=== PATIENT | female | born 1985 | race Caucasian/White ===

== ENCOUNTER → 2017-07-24 | Outpatient (CLI) | payer OTHER ==
[2017-07-24 16:34] LABS: FREE T4 0.85 NG/DL (0.76-1.46)
== END ==
LOC: M SMT 09:12
DX: Z13.29 Encounter for screening for other suspected endocrine disorder (principal)

== ENCOUNTER → 2017-10-25 | Outpatient (CLI) | payer BC | LOC: M SMT 08:43 | DX: Z34.90 Encounter for supervision of normal pregnancy, unspecified, unspecified trimester (principal); Z36.89 Encounter for other specified antenatal screening | CPT/HCPCS: 36415 ==

== ENCOUNTER → 2017-11-30 | Outpatient (CLI) | payer OTHER | LOC: M SMT 07:58 | DX: Z36.9 Encounter for antenatal screening, unspecified (principal); Z3A.19 19 weeks gestation of pregnancy | CPT/HCPCS: 76811 ==

== ENCOUNTER → 2017-12-25 | Outpatient (CLI) | payer OTHER | LOC: M RAD 06:57 | DX: O09.212 Supervision of pregnancy with history of pre-term labor, second trimester (principal); Z3A.22 22 weeks gestation of pregnancy | CPT/HCPCS: 76816 ==

== ENCOUNTER → 2018-01-23 | Outpatient (CLI) | payer OTHER ==
[~2018-01-23] MED LIST: IBUP60TA PO; MAPA500T2 PO; PRENTAB16 PO
[2018-01-23 13:15] LABS: BASO % 0.1 % (0.0-1.0); EOS # 0.1 10^3/uL (0.0-0.50); EOS % 1.7 % (0.0-3.0); HEMATOCRIT 34.9 % (36.0-47.0); HEMOGLOBIN 11.9 g/dl (12.0-15.5); LYMPH # 1.5 10^3/uL (1.5-4.5); LYMPH % 18.3 % (24.0-44.0); MEAN CORPUSCULAR HEMOGLOBIN 30.7 pg (27.0-33.0); MEAN CORPUSCULAR HGB CONC 34.1 g/dl (32.0-36.5); MEAN CORPUSCULAR VOLUME 89.9 fl (80.0-96.0); MONO # 0.3 10^3/uL (0.0-0.8); MONO % 3.9 % (0.0-5.0); NEUTROPHILS # 6.3 10^3/uL (1.8-7.7); NEUTROPHILS % 75.6 % (36.0-66.0); PLATELET COUNT, AUTOMATED 187 10^3/uL (150-450); RED BLOOD COUNT 3.88 10^6/uL (4.00-5.40); WHITE BLOOD COUNT 8.4 10^3/uL (4.0-10.0)
== END ==
LOC: M SMT 09:00
PROVIDERS: ATTEND Specialist
DX: O09.212 Supervision of pregnancy with history of pre-term labor, second trimester (principal)

== ENCOUNTER → 2018-01-25 | Outpatient (CLI) | payer OTHER ==
[~2018-01-25] MED LIST changes: +MAPA500T17 PO; -MAPA500T2 PO
== END ==
LOC: M LAB 06:50
PROVIDERS: ATTEND Specialist
DX: O09.212 Supervision of pregnancy with history of pre-term labor, second trimester (principal)

== ENCOUNTER → 2018-03-28 | Outpatient (REF) | payer OTHER ==
[~2018-03-28] MED LIST changes: -MAPA500T17 PO; +MAPA500T2 PO
== END ==
LOC: M LAB REF 13:06
PROVIDERS: ATTEND Specialist
DX: O09.213 Supervision of pregnancy with history of pre-term labor, third trimester (principal); Z3A.00 Weeks of gestation of pregnancy not specified

== ENCOUNTER 2018-04-17 11:17 | Inpatient (IN) | payer OTHER ==
[2018-04-17] VITALS (11 sets, daily range): BP systolic 126–157; BP diastolic 69–87
[~2018-04-17] VITALS: Ht 154.9 cm; Wt 88.6 kg
[2018-04-17 18:35] LABS: HEMATOCRIT 35.7 % (36.0-47.0); HEMOGLOBIN 12.4 g/dl (12.0-15.5); MEAN CORPUSCULAR HEMOGLOBIN 30.5 pg (27.0-33.0); MEAN CORPUSCULAR HGB CONC 34.7 g/dl (32.0-36.5); MEAN CORPUSCULAR VOLUME 87.9 fl (80.0-96.0); PLATELET COUNT, AUTOMATED 148 10^3/uL (150-450); RED BLOOD COUNT 4.06 10^6/uL (4.00-5.40); WHITE BLOOD COUNT 11.5 10^3/uL (4.0-10.0)
[2018-04-17 18:38] LABS: APPEARANCE, URINE CLEAR (CLEAR); BACTERIA, URINE AUTO NEGATIVE (NEGATIVE); BILIRUBIN, URINE AUTO NEGATIVE (NEGATIVE); BLOOD, URINE BLOOD NEGATIVE (NEGATIVE); CALCIUM OXALATE CRYSTALS SMALL; COLOR, URINE STRAW (YELLOW); GLUCOSE, URINE (UA) AUTO NEGATIVE (NEGATIVE); KETONE, URINE AUTO NEGATIVE (NEGATIVE); LEUKOCYTE ESTERASE, URINE AUTO NEGATIVE (NEGATIVE); NITRITE, URINE AUTO NEGATIVE (NEGATIVE); PROTEIN, URINE AUTO NEGATIVE (NEGATIVE); RBC, URINE AUTO 0 /HPF (0-3); SPECIFIC GRAVITY URINE AUTO 1.004 (1.002-1.035); SQUAMOUS EPITHELIAL CELL UR AU 1 /HPF (0-6); UROBILINOGEN, URINE AUTO 0.2 mg/dL (0.0-2.0); WBC, URINE AUTO 0 /HPF (0-3)
[2018-04-17 19:00] LABS: ALT/SGPT 19 U/L (12-78); BILIRUBIN,TOTAL 0.2 MG/DL (0.2-1.0); CREATININE FOR GFR 0.76 MG/DL (0.55-1.30); GLOMERULAR FILTRATION RATE > 60.0 (>60); LDH LACTATE DEHYDROGENASE 223 U/L (84-246); URIC ACID 5.8 MG/DL (2.6-6.0)
[2018-04-17] MEDS ORDERED: OXYTOCIN 30 UNITS IN 0.9% NaCl 500ML IV BAG (J2590) As Ordered ONE (20:30)
[2018-04-17] MEDS ORDERED: FENTANYL 2MCG/ML ROPIVACAINE 0.2% IN 0.9% NACL 100ML IVBAG As Ordered ONE (21:00)
[2018-04-17] MEDS ORDERED: OXYTOCIN DRIP 30 UNITS in APPROPRIATE DILUENT 1 EA IV SCH (21:36)
[2018-04-17] MEDS ORDERED: ANUSOL HC CREAM 30GM TOP PRN (21:45)
[2018-04-17] MEDS ORDERED: MOM 30ML SUSPENSION UDC PO PRN (21:45)
[2018-04-17] MEDS ORDERED: MEASLES,MUMPS,RUBELLA VACCINE INJ (MMR-II) (90707) SC SCH (21:45)
[2018-04-17] MEDS ORDERED: RHOGAM 300 MCG (1500 IU) INJ (J2790) IM SCH (21:45)
[2018-04-17] MEDS ORDERED: METHYLERGONOVINE MALEATE 0.2 MG TAB PO PRN (21:45)
[2018-04-17] MEDS ORDERED: LIDOCAINE 1% MDV 20ML VIAL INFIL ONE (21:45)
[2018-04-17] MEDS ORDERED: ACETAMINOPHEN 500 MG TAB PO PRN (21:45)
[2018-04-17] MEDS ORDERED: IBUPROFEN 800 MG TAB PO PRN (21:45)
[2018-04-17] MEDS ORDERED: DOCUSATE SODIUM 100 MG CAP PO PRN (21:45)
[2018-04-17] MEDS ORDERED: DIBUCAINE 1% OINTMENT 30GM TOP PRN (21:45)
--- NOTE | 2018-04-17 22:40 | HPE ---
DATE OF ADMISSION: 04/17/2018 REASON FOR ADMISSION: Labor. HISTORY OF THE PRESENT ILLNESS: Mrs. Weeks is a 33-year-old 3, para 1 who presents at 38 weeks 4 days estimated gestational age by last menstrual period, confirmed by first trimester ultrasound, with complaints of contractions. She reports contractions early this morning that have increased in intensity and frequency. She denies any vaginal bleeding or leakage of fluid. Her course has been unremarkable. She initiated care in her first trimester, has been appropriate throughout. She has been receiving [place] injection secondary to a history of premature rupture of membranes. PAST MEDICAL HISTORY: None. PAST SURGICAL HISTORY: None. PAST OBSTETRICAL HISTORY: She is 3, para 1. She has had one delivery at 32 weeks 5 days. She is proven to 4 pounds 13 ounces. SOCIAL HISTORY: Denies any alcohol, tobacco or drug use during her . MEDICATIONS: Includes vitamins. ALLERGIES: She has allergies to PENICILLIN. PHYSICAL EXAMINATION: Vital signs: Her blood pressure is 143/87. This was repeated several times, which was mildly elevated. Respirations 18, pulse has been 70s to 90s. She has been afebrile. She has a category one heart rate tracing with contractions on tocometer approximately ever 3 minutes. General appearance: Well appearing, no acute distress. Lungs: Clear to auscultation bilaterally. Cardiovascular: Heart regular rate and rhythm. Abdomen: Her abdomen is gravid, nontender, estimated weight 3400 grams. Cervical Exam: She is 5 cm dilated, 75% effaced, -2 station. LABS: Her labs - her blood type is B+, antibody screen is negative, rubella is immune. RPR is nonreactive. Hepatitis surface antigen is nonreactive. HIV is negative. Hepatitis C is nonreactive. Chlamydia and gonorrhea screens are negative. She had an elevated 1-hour Glucola with a normal 3-hour glucose tolerance test. She is GBS negative. ASSESSMENT: 1. Mrs. Weeks is a 33-year-old 3, para 1 at 38 weeks 4 days estimated gestational age, here in active labor. 2. Gestational hypertension. 3. Reassuring status. PLAN: 1. Admit to labor and delivery, CBC, RPR, type and screen, pre-eclamptic panel. 2. I have discussed patient diagnosis, as well as plan of care. 3. Patient is a good candidate for an epidural.
--- NOTE | 2018-04-17 22:48 | DN ---
DATE OF DELIVERY: 04/17/2018 TIME OF : 2111 hours. GENDER: Male. SCORES: 8 and 9. WEIGHT: 5 pounds 12 ounces or 2600 grams. LACERATION: First-degree midline laceration. ANESTHESIA: None. COUNTS: Five laparotomy sponges accounted for prior to and after delivery. Two sharps removed from delivery field. DELIVERY NOTE: On 04/17/2018 at 2111 hours, Mrs. Weeks, a 33-year-old, 3, now para 2 had a spontaneous vaginal delivery of live born male , scores 8 and 9, weight was 5 pounds 12 ounces, 2600 grams. Head was delivered, and there was a nuchal cord, which was manually reduced followed by delivery of shoulders and corpus. Infant was handed to mom with a good cry. Cord was clamped times two, was cut by the father of the baby under my direction. Placenta was then drained and delivered grossly intact. A premixed bag of 500 mL of normal saline with 30 units of Pitocin was bolused along with uterine massage, the uterus was firm. On inspection, there was a first-degree midline laceration, which was repaired with #3-0 Vicryl Rapide. On inspection, the cervix, vagina, perineum was grossly intact and hemostatic. Mom and baby recovering in stable condition. Couple has decided to name their son Addison Velazquez.
[2018-04-18 05:46] VITALS: BP 134/69
[2018-04-18] MEDS: PRENATAL VITAMINS CHEWABLE TABLET PO SCH (09:56)
[2018-04-18 18:00] VITALS: BP 124/59
[2018-04-19 06:45] VITALS: BP 134/85
[2018-04-19] MEDS ORDERED: MAPA500T2 PO (07:38)
[2018-04-19] MEDS ORDERED: IBUP-1114 PO (07:38)
[2018-04-19] MEDS: PRENATAL VITAMINS CHEWABLE TABLET PO SCH (08:22)
== END 2018-04-19 12:05 | disposition home or self-care (01) | DRG 807 ==
LOC: M LDO 11:17 → M LDI 17:01 → M OBS 23:13
PROVIDERS: ADMIT Obstetrics & Gynecology; ATTEND Obstetrics & Gynecology
PROC: 10E0XZZ Delivery of Products of Conception, External Approach (ICD-10-PCS; principal; 2018-04-17)
PROC: 0HQ9XZZ Repair Perineum Skin, External Approach (ICD-10-PCS; 2018-04-17)
DX: O13.4 Gestational [pregnancy-induced] hypertension without significant proteinuria, complicating childbirth (principal); Z37.0 Single live birth; Z3A.38 38 weeks gestation of pregnancy; O70.0 First degree perineal laceration during delivery; O69.81X0 Labor and delivery complicated by cord around neck, without compression, not applicable or unspecified

== ENCOUNTER 2018-04-22 20:21 | Inpatient (IN) | payer OTHER ==
[~2018-04-22] VITALS: Ht 154.9 cm; Wt 84.1 kg
[~2018-04-22 20:21] MED LIST changes: +IBUP-1114 PO
[2018-04-22] MEDS ORDERED: KETOROLAC 30 MG/ML VIAL (J1885) IV ONE (21:00)
[2018-04-22 21:50] LABS: BASO % 0.4 % (0.0-1.0); EOS # 0.2 10^3/uL (0.0-0.50); EOS % 1.7 % (0.0-3.0); HEMATOCRIT 34.7 % (36.0-47.0); HEMOGLOBIN 11.9 g/dl (12.0-15.5); LYMPH # 2.5 10^3/uL (1.5-4.5); LYMPH % 26.8 % (24.0-44.0); MEAN CORPUSCULAR HGB CONC 34.3 g/dl (32.0-36.5); MEAN CORPUSCULAR VOLUME 90.4 fl (80.0-96.0); MONO # 0.4 10^3/uL (0.0-0.8); MONO % 4.5 % (0.0-5.0); NEUTROPHILS # 6.1 10^3/uL (1.8-7.7); NEUTROPHILS % 66.3 % (36.0-66.0); PLATELET COUNT, AUTOMATED 257 10^3/uL (150-450); RED BLOOD COUNT 3.84 10^6/uL (4.00-5.40); WHITE BLOOD COUNT 9.2 10^3/uL (4.0-10.0)
--- NOTE | 2018-04-22 22:15 | REPVR ---
EXAM: CT Head Without Contrast EXAM DATE/TIME: 04/22/2018 9:37 PM CLINICAL HISTORY: 33 years old, female; Pain; Additional info: New onset headache/inc BP TECHNIQUE: Axial computed tomography images of the head/brain without contrast. All CT scans at this facility use at least one of these dose optimization techniques: automated exposure control; mA and/or kV adjustment per patient size (includes targeted exams where dose is matched to clinical indication); or iterative reconstruction. COMPARISON: No relevant prior studies available. FINDINGS: Brain: Normal. No hemorrhage. No significant white matter disease. No edema. Ventricles: Normal. No ventriculomegaly. Bones/joints: Unremarkable. No acute fracture. Sinuses: Visualized sinuses are unremarkable. No acute sinusitis. Mastoid air cells: Visualized mastoid air cells are unremarkable. No mastoid effusion. Soft tissues: Unremarkable. IMPRESSION: Negative noncontrast head CT. Electronically signed by: Klaus Mcclellan On 04/22/2018 22:14:50 PM
[2018-04-22 22:24] LABS: ALBUMIN 3.3 GM/DL (3.2-5.2); ALT/SGPT 34 U/L (12-78); BILIRUBIN,DIRECT < 0.1 MG/DL (0.0-0.2); BILIRUBIN,TOTAL 0.3 MG/DL (0.2-1.0); BLOOD UREA NITROGEN 14 MG/DL (7-18); CALCIUM LEVEL 8.4 MG/DL (8.5-10.1); CARBON DIOXIDE LEVEL 24 MEQ/L (21-32); CHLORIDE LEVEL 101 MEQ/L (98-107); CREATININE FOR GFR 0.77 MG/DL (0.55-1.30); GLOMERULAR FILTRATION RATE > 60.0 (>60); GLUCOSE, FASTING 76 MG/DL (70-100); LDH LACTATE DEHYDROGENASE 376 U/L (84-246); POTASSIUM SERUM 4.2 MEQ/L (3.5-5.1); SODIUM LEVEL 133 MEQ/L (136-145); TOTAL PROTEIN 7.1 GM/DL (6.4-8.2); URIC ACID 5.1 MG/DL (2.6-6.0)
[2018-04-22] MEDS ORDERED: LABETALOL HCL 100 MG/20 ML VIAL IV STA (22:35)
[2018-04-22 22:36] LABS: INR 0.88
[2018-04-22 22:37] LABS: PARTIAL THROMBOPLASTIN TIME 25.7 SECONDS (25.4-37.6)
[2018-04-22] MEDS ORDERED: LABETALOL HCL 100 MG/20 ML VIAL IV PRN (22:45)
[2018-04-22] MEDS ORDERED: CALCIUM GLUCONATE 1,000 MG in D5W MINI-BAG PLUS 100 ML IV PRN (22:45)
[2018-04-22] MEDS ORDERED: MAG Sulf (L&D) 4 GM/100 ML 4 GM in APPROPRIATE DILUENT 1 EA IV ONE (22:45)
[2018-04-22 22:58] VITALS: BP 167/106
[2018-04-22 23:33] VITALS: BP 147/90
[2018-04-22 23:45] VITALS: BP 139/77
[2018-04-23] VITALS (35 sets, daily range): BP systolic 101–159; BP diastolic 56–96
[2018-04-23] MEDS: MAG Sulf (OBGYN) 20GM/500ML 20,000 MG in APPROPRIATE DILUENT 1 EA IV SCH ×3 (00:05→19:59)
[2018-04-23] MEDS: LR 1,000 ML IV SCH ×2 (00:17→11:55)
--- NOTE | 2018-04-23 00:24 | NUR ---
[employer] H&P 31-year-old G3, P2. Status post uncomplicated on 04/17/2018. Throughout today, she's had a persistent headache. The headache was not relieved with multiple doses of Tylenol and ibuprofen. She was instructed over the phone to present to the ER. Upon her arrival, her blood pressures were severely elevated , reaching a systolic blood pressure 193. She denies any visual changes, chest pain, shortness of breath or right upper quadrant pain. Her lochia has been minimal. She has no pelvic pain. She is both breast-feeding and formula feeding. O: 177/100, 193/92, 167/106, normal heart rate, afebrile Gen.: Alert and oriented 4 Heart: regular rate and rhythm. No murmurs, gallops, rubs Lungs: clear to auscultation bilaterally. No wheezes, crackles, rales, rhonchi Extremities: nonedematous, nontender. Normal DTRs Labs CBC, 9.2> 11.9/34.0<257 Creatinine 0.77 Uric acid 5.1 AST 44, ALT 34 LDH [address] of the head: Negative for evidence of intracranial pathology (see report in [facility]) A/P: 31-year-old G3, P2 with preeclampsia with severe features. -Admit to labor and delivery -IV labetalol 20 mg administered in the ER -Magnesium sulfate 4 grams IV loading dose followed by 2 g per hour -IV antihypertensive as needed for persistently severe range blood pressure elevations. Consider starting PO antihypertensive -Treat headache with Tylenol or Fioricet as needed Cara Ann DO
[2018-04-23 08:41] LABS: BASO % 0.4 % (0.0-1.0); EOS # 0.1 10^3/uL (0.0-0.50); EOS % 1.4 % (0.0-3.0); HEMATOCRIT 36.6 % (36.0-47.0); HEMOGLOBIN 12.4 g/dl (12.0-15.5); LYMPH # 1.6 10^3/uL (1.5-4.5); LYMPH % 18.7 % (24.0-44.0); MEAN CORPUSCULAR HEMOGLOBIN 30.4 pg (27.0-33.0); MEAN CORPUSCULAR HGB CONC 33.9 g/dl (32.0-36.5); MEAN CORPUSCULAR VOLUME 89.7 fl (80.0-96.0); MONO # 0.3 10^3/uL (0.0-0.8); MONO % 3.9 % (0.0-5.0); NEUTROPHILS # 6.3 10^3/uL (1.8-7.7); NEUTROPHILS % 75.2 % (36.0-66.0); PLATELET COUNT, AUTOMATED 276 10^3/uL (150-450); RED BLOOD COUNT 4.08 10^6/uL (4.00-5.40); WHITE BLOOD COUNT 8.4 10^3/uL (4.0-10.0)
[2018-04-23] MEDS ORDERED: MAGNESIUM SULFATE 4% INJ 20GM/500ML (40MG/ML) (J3475) As Ordered ONE (09:51)
[2018-04-23 10:27] LABS: ALT/SGPT 30 U/L (12-78); BILIRUBIN,TOTAL 0.3 MG/DL (0.2-1.0); CREATININE FOR GFR 0.72 MG/DL (0.55-1.30); GLOMERULAR FILTRATION RATE > 60.0 (>60); HEPATITIS C VIRUS ABY INDEX 0.1 INDEX (<0.8); HIV 1&2 SCREEN CENTAUR NEGATIVE (NEGATIVE); LDH LACTATE DEHYDROGENASE 261 U/L (84-246); MAGNESIUM LEVEL 6.4 MG/DL (1.8-2.4); RUBELLA IgG QUALITATIVE IMMUNE (IMMUNE); URIC ACID 5.1 MG/DL (2.6-6.0)
[2018-04-23] MEDS ORDERED: ACETAMINOPHEN 500 MG TAB PO PRN (12:45)
[2018-04-23] MEDS ORDERED: MAG Sulf (OBGYN) 20GM/500ML 20,000 MG in APPROPRIATE DILUENT 1 EA IV SCH (17:00)
--- NOTE | 2018-04-23 21:31 | IPNPDOC ---
Text Note Date of Service The patient was seen on 04/23/18. NOTE Subjective: Patient reports she still has a dull headache of about 2/10 but doesn't notice she has it until she is asked about it. She denies any medication to help with her headache. She denies visual changes, SOB, chest pain, or epigastric pain. Objective: VS and labs: see below. A+O x3. Eyes are very heavy appearing. Respiratory rate regular and clear bilaterally. Lochia scant. Patellar reflexes in the am were 1+ and decreased to diminished in the afternoon prior to her magnesium being decreased. Large amount of urine output noted throughout the day with greater than 2,000 cc of out noted. Assessment: preeclampsia with severe features Plan: Plan of care made with Dr. Ann. Magnesium level is therapeutic this morning although the Magnesium was turned down to 1 mg/hr due to patient complaining of increased numbness at the bottom of her feet. A few hours after magnesium was decreased she reports improvement in the numbness of her feet. Magnesium sulfate to be turned off at 11 pm. Will continue to observe. Plan to discharge patient to home in the morning if she continues to have lower blood pressures and is without preeclamptic symptoms. VS,Fishbone, I+O VS, Fishbone, I+O Laboratory Tests 04/23/18 08:08 Red Blood Count 4.08, Mean Corpuscular Volume 89.7, Mean Corpuscular Hemoglobin 30.4, Mean Corpuscular Hemoglobin Concent 33.9, Red Cell Distribution Width 13.4, Neutrophils (%) (Auto) 75.2 H, Lymphocytes (%) (Auto) 18.7 L, Monocytes (%) (Auto) 3.9, Eosinophils (%) (Auto) 1.4, Basophils (%) (Auto) 0.4, Neutrophils # (Auto) 6.3, Lymphocytes # (Auto) 1.6, Monocytes # (Auto) 0.3, Eosinophils # (Auto) 0.1, Basophils # (Auto) 0.0, Aspartate Amino Transf (AST/SGOT) 32, Alanine Aminotransferase (ALT/SGPT) 30, Lactate Dehydrogenase 261 H, Total Bilirubin 0.3, Uric Acid 5.1 Vital Signs Date Time Temp Pulse Resp B/P (MAP) Pulse Ox O2 Delivery O2 Flow Rate FiO2 04/23/18 20:30 98.7 87 18 134/88 (103) 04/22/18 23:14 100 Room Air I&O- Last 24 Hours up to 6 AM 04/23/18 06:00 Intake Total 800 ml Output Total 1500 ml Balance -700 ml LILA JUAN CNM Apr 23, 2018 21:31
[2018-04-24] VITALS (8 sets, daily range): BP systolic 131–162; BP diastolic 60–85
[2018-04-24] MEDS: LR 1,000 ML IV SCH (02:57)
[2018-04-24] MEDS: PRENATAL VITAMINS CHEWABLE TABLET PO SCH (10:16)
[2018-04-25 01:54] VITALS: BP 136/85
[2018-04-25 05:57] VITALS: BP 141/78
[2018-04-25] MEDS: PRENATAL VITAMINS CHEWABLE TABLET PO SCH (07:49)
== END 2018-04-25 08:30 | disposition home or self-care (01) | DRG 776 ==
LOC: M ED 20:21 → M ED INP 22:31 → M LDI 23:30 → M OBS 04-23 20:00
PROVIDERS: ADMIT Obstetrics & Gynecology; ATTEND Obstetrics & Gynecology
DX: O14.15 Severe pre-eclampsia, complicating the puerperium (principal)

== ENCOUNTER → 2018-07-26 | Outpatient (CLI) | payer OTHER ==
[~2018-07-26] MED LIST changes: +IBUP600T42 PO; -IBUP60TA PO
[2018-07-26 13:37] LABS: FREE T4 0.78 NG/DL (0.76-1.46); THYROID STIMULATING HORMONE 1.2 uIU/ML (0.358-3.740)
== END ==
LOC: M SMT 09:02
PROVIDERS: ATTEND Family Medicine
DX: Z00.00 Encounter for general adult medical examination without abnormal findings (principal); Z13.29 Encounter for screening for other suspected endocrine disorder

== ENCOUNTER → 2018-09-03 | Outpatient (REF) | payer OTHER ==
[2018-09-06 14:08] LABS: HPV HYBRID CAPTURE II Negative (Negative)
== END ==
LOC: M LAB REF 17:55
PROVIDERS: ATTEND Obstetrics & Gynecology
DX: Z12.4 Encounter for screening for malignant neoplasm of cervix (principal)
CPT/HCPCS: 87624; G0123

== ENCOUNTER → 2019-07-17 | Outpatient (CLI) | payer OTHER | LOC: M LABSMTC 11:16 | PROVIDERS: ATTEND Family Medicine | DX: Z03.818 Encounter for observation for suspected exposure to other biological agents ruled out (principal); Z11.59 Encounter for screening for other viral diseases | CPT/HCPCS: C9803; U0003 ==

== ENCOUNTER → 2019-09-05 | Outpatient (CLI) | payer OTHER ==
[2019-10-05 14:19] LABS: BASO % 0.8 % (0.0-1.0); EOS # 0.1 10^3/uL (0.0-0.5); EOS % 2.5 % (0.0-3.0); HEMATOCRIT 43.2 % (36.0-47.0); HEMOGLOBIN 14.2 g/dl (12.0-15.5); LYMPH # 1.9 10^3/uL (1.5-5.0); MEAN CORPUSCULAR HEMOGLOBIN 30.1 pg (27.0-33.0); MEAN CORPUSCULAR HGB CONC 32.9 g/dl (32.0-36.5); MEAN CORPUSCULAR VOLUME 91.7 fl (80.0-96.0); MONO # 0.3 10^3/uL (0.0-0.8); MONO % 5.3 % (0.0-5.0); NEUTROPHILS # 2.8 10^3/uL (1.5-8.5); NEUTROPHILS % 54.2 % (36.0-66.0); PLATELET COUNT, AUTOMATED 231 10^3/uL (150-450); RED BLOOD COUNT 4.71 10^6/uL (4.00-5.40); WHITE BLOOD COUNT 5.1 10^3/uL (4.0-10.0)
[2019-10-20 05:29] LABS: ALBUMIN 4.3 GM/DL (3.2-5.2); ALT/SGPT 29 U/L (12-78); BILIRUBIN,TOTAL 0.4 MG/DL (0.2-1.0); BLOOD UREA NITROGEN 12 MG/DL (7-18); CALCIUM LEVEL 8.9 MG/DL (8.5-10.1); CARBON DIOXIDE LEVEL 28 MEQ/L (21-32); CHLORIDE LEVEL 107 MEQ/L (98-107); CHOLESTEROL LEVEL 284 MG/DL (<200); CHOLESTEROL RISK RATIO 5.568 (<5); CREATININE FOR GFR 0.97 MG/DL (0.55-1.30); FREE T4 0.91 NG/DL (0.76-1.46); GLOMERULAR FILTRATION RATE > 60.0 (>60); GLUCOSE, FASTING 94 MG/DL (70-100); HDL CHOLESTEROL 51 MG/DL (>40); LDL CHOLESTEROL 207 MG/DL (<100); NON-HDL-C 233 MG/DL; POTASSIUM SERUM 4.3 MEQ/L (3.5-5.1); SODIUM LEVEL 138 MEQ/L (136-145); TOTAL PROTEIN 7.5 GM/DL (6.4-8.2); TRIGLYCERIDES LEVEL 130 MG/DL (<150)
== END ==
LOC: M LAB 06:27
PROVIDERS: ATTEND Family Medicine
DX: Z13.29 Encounter for screening for other suspected endocrine disorder (principal); Z13.0 Encounter for screening for diseases of the blood and blood-forming organs and certain disorders involving the immune mechanism; Z13.220 Encounter for screening for lipoid disorders

== ENCOUNTER → 2019-10-17 | Outpatient (CLI) | payer OTHER ==
[2019-10-17 07:17] LABS: ALBUMIN 4.5 GM/DL (3.2-5.2); ALT/SGPT 31 U/L (12-78); BILIRUBIN,TOTAL 0.3 MG/DL (0.2-1.0); BLOOD UREA NITROGEN 19 MG/DL (7-18); CALCIUM LEVEL 9.4 MG/DL (8.5-10.1); CARBON DIOXIDE LEVEL 27 MEQ/L (21-32); CHLORIDE LEVEL 106 MEQ/L (98-107); CHOLESTEROL LEVEL 195 MG/DL (<200); CHOLESTEROL RISK RATIO 3.305 (<5); CREATININE FOR GFR 0.88 MG/DL (0.55-1.30); GLOMERULAR FILTRATION RATE > 60.0 (>60); GLUCOSE, FASTING 101 MG/DL (70-100); HDL CHOLESTEROL 59 MG/DL (>40); LDL CHOLESTEROL 115 MG/DL (<100); NON-HDL-C 136 MG/DL; POTASSIUM SERUM 4.7 MEQ/L (3.5-5.1); SODIUM LEVEL 138 MEQ/L (136-145); TOTAL PROTEIN 7.6 GM/DL (6.4-8.2); TRIGLYCERIDES LEVEL 107 MG/DL (<150)
== END ==
LOC: M LAB 06:07
PROVIDERS: ATTEND Family Medicine
DX: E78.00 Pure hypercholesterolemia, unspecified (principal)

== ENCOUNTER → 2020-02-28 | Outpatient (CLI) | payer OTHER | LOC: M LABSMTC 14:04 | PROVIDERS: ATTEND Family Medicine | DX: Z20.822 Contact with and (suspected) exposure to COVID-19 (principal) ==

== ENCOUNTER → 2020-11-03 | Outpatient (CLI) | payer OTHER ==
[2020-11-03 07:13] LABS: ALBUMIN 3.8 GM/DL (3.2-5.2); ALT/SGPT 28 U/L (12-78); BILIRUBIN,TOTAL 0.3 MG/DL (0.2-1.0); BLOOD UREA NITROGEN 16 MG/DL (7-18); CALCIUM LEVEL 9.3 MG/DL (8.5-10.1); CARBON DIOXIDE LEVEL 28 MEQ/L (21-32); CHLORIDE LEVEL 105 MEQ/L (98-107); CHOLESTEROL LEVEL 232 MG/DL (<200); CHOLESTEROL RISK RATIO 3.625 (<5); CREATININE FOR GFR 0.77 MG/DL (0.55-1.30); GLOMERULAR FILTRATION RATE > 60.0 (>60); GLUCOSE, FASTING 95 MG/DL (70-100); HDL CHOLESTEROL 64 MG/DL (>40); LDL CHOLESTEROL 150 MG/DL (<100); MAGNESIUM LEVEL 1.7 MG/DL (1.8-2.4); NON-HDL-C 168 MG/DL; POTASSIUM SERUM 4.1 MEQ/L (3.5-5.1); SODIUM LEVEL 138 MEQ/L (136-145); TOTAL PROTEIN 6.9 GM/DL (6.4-8.2); TRIGLYCERIDES LEVEL 91 MG/DL (<150)
== END ==
LOC: M LAB 06:03
PROVIDERS: ATTEND Internal Medicine Cardiovascular Disease
DX: I47.2 Ventricular tachycardia (principal)

== ENCOUNTER → 2021-03-15 | Outpatient (CLI) | payer OTHER ==
[2021-03-15 18:09] LABS: ALBUMIN 4.3 GM/DL (3.2-5.2); ALT/SGPT 34 U/L (12-78); BILIRUBIN,TOTAL 0.2 MG/DL (0.2-1.0); BLOOD UREA NITROGEN 13 MG/DL (7-18); CALCIUM LEVEL 9.3 MG/DL (8.5-10.1); CARBON DIOXIDE LEVEL 26 MEQ/L (21-32); CHLORIDE LEVEL 106 MEQ/L (98-107); CHOLESTEROL LEVEL 192 MG/DL (<200); CHOLESTEROL RISK RATIO 3.047 (<5); CREATININE FOR GFR 0.74 MG/DL (0.55-1.30); GLOMERULAR FILTRATION RATE > 60.0 (>60); GLUCOSE, FASTING 85 MG/DL (70-100); HDL CHOLESTEROL 63 MG/DL (>40); LDL CHOLESTEROL 107 MG/DL (<100); NON-HDL-C 129 MG/DL; POTASSIUM SERUM 4.2 MEQ/L (3.5-5.1); SODIUM LEVEL 140 MEQ/L (136-145); TOTAL PROTEIN 7.5 GM/DL (6.4-8.2); TRIGLYCERIDES LEVEL 110 MG/DL (<150)
[2021-03-16 17:28] LABS: MAGNESIUM LEVEL 1.8 MG/DL (1.7-2.2)
[2021-03-17 08:12] LABS: LDL DIRECT 107 mg/dL (0-99)
== END ==
LOC: M LAB 15:45
PROVIDERS: ATTEND Internal Medicine Cardiovascular Disease
DX: I47.2 Ventricular tachycardia (principal); E78.2 Mixed hyperlipidemia; R55 Syncope and collapse; I50.9 Heart failure, unspecified

== ENCOUNTER → 2024-01-16 | Outpatient (CLI) | payer OTHER | LOC: M WUC 08:10 | PROVIDERS: ATTEND Family Medicine | DX: J20.9 Acute bronchitis, unspecified (principal) ==